=== PATIENT | male | born 1965 | race Two or more races ===

== ENCOUNTER → 2018-12-01 | Outpatient (CLI) | payer BC ==
--- NOTE | 2018-12-01 17:56 | CONS ---
Assessment/Plan Assessment/Plan Hospital Course (Demo Recall) 53-year-old male presenting with long-standing left worse than right hip pain. Today in clinic he is more symptomatic in regards to his greater trochanteric bursa and gluteal musculature. He does have a very stiff left hip however the this is causing him less symptoms overall. At this time the patient wishes to continue conservative treatment. I would like him to start physical therapy for his greater trochanteric bursitis and gluteal muscle tendinitis and start an diclofenac gel. If he does not have improvement with conservative treatment surgery will be we discussed with the patient. Follow-up 12 weeks Consultation Date/Type/Reason Admit Date/Time Date of Consultation: Dec 01, 2018 Reason for Consultation Left hip pain Date/Time of Note DATE: 12/01/18 TIME: 17:40 Hx of Present Illness This is a 53-year-old male who presents with a history of left hip pain. Patient states the pain is in the lateral and posterior aspect of the hip and sometimes in the groin. The pain does radiate to the knee. It is described as sharp at times and as a dull ache. The pain is rated as a 9/10 with activity. Walking tolerance is not limited. No external support. The patient does admit to a limp. It is difficult to sleep on the affected side at night secondary to pain. There are no symptoms to suggest referred pain from the back with radicular symptoms. Treatment to date has included oral anti-inflammatories, activity modification. The patient states that treatment to date has not provided adequate relief of symptoms, prompting consultation. Duration: Years Injury: No Walking tolerance: Not limited Limp: Occasionally Support: No Stairs: Difficult Physical Therapy: Not since right hip scope number of years ago Injections: No NSAID's: Ibuprofen as needed Prior surgery: Right hip scope Back pain: Yes Knee pain: No Risk of AVN : Yes Patient denies fever, chills, shortness of breath, chest pain, nausea/vomiting, constipation, diarrhea, numbness, and tingling. Past Medical History Thyroid cancer status post thyroidectomy. In remission Past Surgical History Thyroidectomy Family History Significant Family History: no pertinent family hx Social History Alcohol Use: occasionally Smoking Status: Never smoker Drug Use: none Exam/Review of Systems Exam Vitals Weight: 215 pounds Height: 5 feet 10 inches Temperature: 97.9 Heart Rate: 75 Blood Pressure: 145/70 Respiratory Rate: 14 Exam General: Alert, oriented. Vital signs: Noted on the chart. Heart: Regular rate and rhythm. Lungs: No respiratory distress. No accessory muscle use. Musculoskeletal: Well developed male in no apparent distress. Gait demonstrates a Trendelenburg with antalgic components and no short leg component. Standing, the pelvis is level and supine there is no true leg length discrepancy. There is tenderness over trochanteric bursa and gluteus Positive Obers Test Range of motion: Flexion: 100 Extension: 0 Internal rotation: 0 External rotation: 30 Abduction: 30 Adduction: 10 Sitting there is no pelvic obliquity. There is mild groin pain to extremes of range of motion. Skin was intact throughout both lower extremities. Sensation intact to light touch in a sural, saphenous, deep peroneal, superficial peroneal, medial and lateral plantar nerve distribution. Neurovascular exam showed 5/5 strength in the abductors, quads, EHL/tibialis anterior/gastroc. Normal and symmetrical pulses were palpated in both the dorsalis pedis and posterior tibial arteries. There is no sign of venous stasis. Imaging Imaging AP and lateral of bilateral hips from outside facility were reviewed. These were dated this past August. 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 There are a number of subchondral cysts, subchondral sclerosis, and osteophytes. There is significant femoral acetabular impingement bilateral hips. MALLORY VAZQUEZ MD Dec 01, 2018 17:51
== END | disposition home or self-care (01) ==
LOC: HKI 13:51
PROVIDERS: ATTEND Orthopaedic Surgery Adult Reconstructive Orthopaedic Surgery
DX: M25.551 Pain in right hip (principal); M25.552 Pain in left hip; M16.0 Bilateral primary osteoarthritis of hip
CPT/HCPCS: G0463